=== PATIENT | female | born 1980 | race Caucasian/White ===

== ENCOUNTER 2018-12-12 05:56 | Inpatient (IN) | payer OTHER ==
[2018-12-12 06:26] LABS: ADD MAN DIFF? NO
[2018-12-12 06:29] LABS: WHITE BLOOD COUNT 9.6 10^3/ul (4.8-10.8)
[2018-12-12 06:29] LABS: BASOPHILS % 0.3 % (0.0-2.0); EOSINOPHILS # 0.5 10^3/ul (0.0-0.5); EOSINOPHILS % 5.5 % (0.0-7.0); HEMATOCRIT 20.6 % (37.0-47.0); LYMPHOCYTES # 1.7 10^3/ul (0.8-2.9); LYMPHOCYTES % 17.2 % (15.0-51.0); MEAN CORPUSCULAR HEMOGLOBIN 29.9 pg (29.0-33.0); MEAN CORPUSCULAR HGB CONC 32.5 g/dl (32.0-37.0); MEAN PLATELET VOLUME 10.9 fl (7.4-10.4); MONOCYTE # 0.7 10^3/ul (0.3-0.9); MONOCYTES % 7.6 % (0.0-11.0); NEUTROPHIL # 6.7 10^3/ul (1.6-7.5); NEUTROPHILS % 69.1 % (39.0-77.0); PLATELET COUNT 234 10^3/UL (140-415); RED BLOOD COUNT 2.24 10^6/ul (4.20-5.40); RED CELL DISTRIBUTION WIDTH 15.1 % (11.5-14.5)
[2018-12-12] MEDS ORDERED: THROMBIN 5000 UNIT VIAL (06:47)
[2018-12-12] MEDS ORDERED: LIDOCAINE 1% (MPF) 30 ML INJ (06:47)
[2018-12-12] MEDS ORDERED: GELATIN SIZE 100 SPONGE (06:47)
[2018-12-12] MEDS ORDERED: HEPARIN 1000 UNITS/ML 10 ML INJ (06:48)
[2018-12-12 06:49] LABS: ANION GAP 9 (5-13); CARBON DIOXIDE 18 mmol/L (21-31); CHLORIDE 114 mmol/L (97-110); Estimated GFR 8 mL/min (>60); GLUCOSE 88 mg/dl (70-220); HEMOGLOBIN 6.7 g/dl (12.0-16.0); HOLD TRANSMISSIONS 1; INR 0.92; PARTIAL THROMBOPLASTIN TIME 34.9 Sec (23.0-35.0); POSITIVE DIFF @See below; POTASSIUM 3.9 mmol/L (3.5-5.1); PROTIME 12.5 Sec (11.9-14.9); SODIUM 141 mmol/L (135-144)
[2018-12-12 06:52] LABS: CALCIUM 7.8 mg/dl (8.4-10.2); CREATININE 5.78 mg/dl (0.44-1.00)
[2018-12-12 06:56] LABS: BLOOD UREA NITROGEN 48 mg/dl (7-20)
[2018-12-12 08:45] LABS: ANISOCYTOSIS 1+ (0-0); BAND NEUTROPHILS #M 0.3 10^3/ul (0.0-0.6); BAND NEUTROPHILS % (M) 4 % (0-4); EOSINOPHILS % (M) 3 % (0-7); GIANT THROMBO% (M) 1 % (0-0); LYMPHOCYTES #M 1.7 10^3/ul (0.8-2.9); LYMPHOCYTES % (M) 18 % (15-51); MICROCYTOSIS 1+ (0-0); MONOCYTE #M 0.4 10^3/ul (0.3-0.9); MONOCYTES % (M) 5 % (0-11); PLATELET ESTIMATE NORMAL; POIKILOCYTOSIS 1+ (0-0); POLYCHROMASIA 3+ (0-0); SEG NEUT #M 6.7 10^3/ul (1.6-7.5); SEGMENTED NEUTROPHILS (M) % 70 % (39-77); SMUDGE%M 4 % (0-0)
[2018-12-12] MEDS: NICOTINE (21 MG/24 HR) PATCH TRANSDERM (09:12)
[2018-12-12] MEDS ORDERED: ONDANSETRON 4 MG INJ IV (12:00)
[2018-12-12] MEDS ORDERED: DOCUSATE SODIUM 100 MG CAP PO (12:00)
[2018-12-12] MEDS ORDERED: morphine 2 MG INJ IV (12:00)
[2018-12-12] MEDS ORDERED: NACL 0.9% 3 ML SYG IV (12:00)
[2018-12-12] MEDS: ASPIRIN (EC) 81 MG TAB PO (12:16)
[2018-12-12 12:30] LABS: ADD MAN DIFF? NO
[2018-12-12 12:33] LABS: ABNORMAL IP MESSAGE 1; BASOPHILS % 0.4 % (0.0-2.0); EOSINOPHILS # 0.6 10^3/ul (0.0-0.5); EOSINOPHILS % 7.5 % (0.0-7.0); HEMATOCRIT 21.7 % (37.0-47.0); LYMPHOCYTES # 1.6 10^3/ul (0.8-2.9); LYMPHOCYTES % 19.3 % (15.0-51.0); MEAN CORPUSCULAR HEMOGLOBIN 29.1 pg (29.0-33.0); MEAN CORPUSCULAR HGB CONC 31.3 g/dl (32.0-37.0); MEAN CORPUSCULAR VOLUME 92.7 fl (82.0-101.0); MEAN PLATELET VOLUME 10.7 fl (7.4-10.4); MONOCYTE # 0.5 10^3/ul (0.3-0.9); MONOCYTES % 6.3 % (0.0-11.0); NEUTROPHIL # 5.6 10^3/ul (1.6-7.5); PLATELET COUNT 225 10^3/UL (140-415); RED BLOOD COUNT 2.34 10^6/ul (4.20-5.40); RED CELL DISTRIBUTION WIDTH 15.4 % (11.5-14.5)
[2018-12-12 12:33] LABS: WHITE BLOOD COUNT 8.5 10^3/ul (4.8-10.8)
[2018-12-12] MEDS: SOD CHLORIDE 0.9% 250 ML IV* (12:35)
[2018-12-12 12:36] LABS: HEMOGLOBIN 6.8 g/dl (12.0-16.0); POSITIVE DIFF @See below
[2018-12-12 12:46] LABS: HEMOGLOBIN A1C 5.4 % (0-5.9)
[2018-12-12 12:49] LABS: ANION GAP 14 (5-13); BLOOD UREA NITROGEN 46 mg/dl (7-20); CALCIUM 7.9 mg/dl (8.4-10.2); CARBON DIOXIDE 17 mmol/L (21-31); CHLORIDE 112 mmol/L (97-110); CREATININE 5.83 mg/dl (0.44-1.00); Estimated GFR 8 mL/min (>60); GLUCOSE 81 mg/dl (70-220); MAGNESIUM 1.7 mg/dl (1.7-2.5); PHOSPHORUS 5.3 mg/dl (2.5-4.9); POTASSIUM 4.3 mmol/L (3.5-5.1); SODIUM 143 mmol/L (135-144)
[2018-12-12] MEDS: FUROSEMIDE 40 MG INJ IV (13:24)
[2018-12-12 13:58] LABS: IMMEDIATE SPIN CROSSMATCH 1 3
[2018-12-12] MEDS: ACETAMINOPHEN 650MG/20.3ML CUP PO (15:05)
[2018-12-12] MEDS: hydrALAzine 20 MG INJ IV (15:14)
[2018-12-12] MEDS: CITRIC ACID/NA CITRATE 30 ML CUP PO ×2 (16:40→21:09)
[2018-12-12] MEDS: LORAZEPAM 0.5 MG TAB PO (17:46)
[2018-12-12 18:28] LABS: IRON 104 ug/dl (35-150)
[2018-12-12 18:28] LABS: LACTATE DEHYDROGENASE 906 IU/L (313-618)
[2018-12-12 18:37] LABS: % IRON SATURATION 42 % SAT (22-52); TOTAL IRON BINDING CAPACITY 248 ug/dl (241-421)
[2018-12-12 18:41] LABS: TROPONIN-I 0.018 ng/ml (0.000-0.120)
[2018-12-12 19:37] LABS: FOLATE 12.5 ng/ml (2.8-20.0)
[2018-12-12] MEDS: EPOETIN 3000 UNITS/ML (NON ESRD/NON ONCOLOGY) SC (20:00)
[2018-12-12 20:46] LABS: ANION GAP 13 (5-13); BLOOD UREA NITROGEN 49 mg/dl (7-20); CARBON DIOXIDE 18 mmol/L (21-31); CHLORIDE 111 mmol/L (97-110); CREATININE 5.83 mg/dl (0.44-1.00); Estimated GFR 8 mL/min (>60); GLUCOSE 118 mg/dl (70-220); MAGNESIUM 1.7 mg/dl (1.7-2.5); POTASSIUM 4.5 mmol/L (3.5-5.1); SODIUM 142 mmol/L (135-144)
[2018-12-12 21:08] LABS: CREATINE KINASE 276 IU/L (23-200)
[2018-12-12] MEDS: ATORVASTATIN 20 MG TAB PO (21:10)
[2018-12-12] MEDS: FUROSEMIDE 20 MG INJ IV (21:10)
[2018-12-12] MEDS: traZODone 50 MG TAB PO (21:12)
[2018-12-12] MEDS: ISOSORBIDE MONONITRATE 20 MG TAB PO (21:19)
[2018-12-12 21:20] LABS: CK INDEX 1.2; CK-MB 3.43 ng/ml (0.0-2.4); TROPONIN-I 0.014 ng/ml (0.000-0.120)
[2018-12-12] MEDS: IPRATROPIUM (NEB) 0.5 MG/2.5 ML AMP NEB (21:44)
[2018-12-12] MEDS: ALBUTEROL 0.083% (NEB) 2.5 MG/3 ML AMP NEB (21:44)
[2018-12-12] MEDS ORDERED: MAGNESIUM SULFATE 2 GM/50 ML 50 ML (22:02)
[2018-12-12] MEDS: MAGNESIUM SULFATE 2 GM/50 ML 50 ML IVPB (22:07)
[2018-12-13] MEDS: OLANZAPINE 2.5 MG TAB PO ×3 (00:02→20:19)
[2018-12-13 01:43] LABS: TROPONIN-I 0.016 ng/ml (0.000-0.120)
[2018-12-13] MEDS: FUROSEMIDE 20 MG INJ IV ×2 (05:16→06:54)
[2018-12-13] MEDS: PANTOPRAZOLE (EC) 40 MG TAB PO ×2 (05:17→06:53)
[2018-12-13 06:06] LABS: ADD MAN DIFF? NO
[2018-12-13 06:10] LABS: BASOPHILS % 0.4 % (0.0-2.0); EOSINOPHILS # 0.6 10^3/ul (0.0-0.5); EOSINOPHILS % 6.7 % (0.0-7.0); HEMATOCRIT 25.7 % (37.0-47.0); HEMOGLOBIN 8.2 g/dl (12.0-16.0); LYMPHOCYTES % 21.4 % (15.0-51.0); MEAN CORPUSCULAR HEMOGLOBIN 29.4 pg (29.0-33.0); MEAN CORPUSCULAR HGB CONC 31.9 g/dl (32.0-37.0); MEAN CORPUSCULAR VOLUME 92.1 fl (82.0-101.0); MEAN PLATELET VOLUME 10.9 fl (7.4-10.4); MONOCYTE # 0.8 10^3/ul (0.3-0.9); MONOCYTES % 8.2 % (0.0-11.0); NEUTROPHIL # 5.8 10^3/ul (1.6-7.5); NEUTROPHILS % 62.3 % (39.0-77.0); PLATELET COUNT 213 10^3/UL (140-415); RED BLOOD COUNT 2.79 10^6/ul (4.20-5.40); RED CELL DISTRIBUTION WIDTH 15.1 % (11.5-14.5)
[2018-12-13 06:10] LABS: WHITE BLOOD COUNT 9.3 10^3/ul (4.8-10.8)
[2018-12-13 06:35] LABS: ANION GAP 11 (5-13); BLOOD UREA NITROGEN 49 mg/dl (7-20); CALCIUM 8.2 mg/dl (8.4-10.2); CARBON DIOXIDE 20 mmol/L (21-31); CHLORIDE 113 mmol/L (97-110); CREATININE 5.94 mg/dl (0.44-1.00); Estimated GFR 8 mL/min (>60); GLUCOSE 79 mg/dl (70-220); POTASSIUM 4.4 mmol/L (3.5-5.1); SODIUM 144 mmol/L (135-144)
[2018-12-13 06:36] LABS: TROPONIN-I 0.025 ng/ml (0.000-0.120)
[2018-12-13] MEDS: SEVELAMER CARBONATE 800 MG TABLET PO ×3 (07:48→17:31)
[2018-12-13] MEDS: NICOTINE (21 MG/24 HR) PATCH TRANSDERM (08:29)
[2018-12-13] MEDS: BUPROPION (XL) 150 MG TAB PO (08:30)
[2018-12-13] MEDS: SERTRALINE 50 MG TAB PO (08:30)
[2018-12-13] MEDS: ASPIRIN (EC) 81 MG TAB PO (08:31)
[2018-12-13] MEDS: CITRIC ACID/NA CITRATE 30 ML CUP PO ×3 (08:31→20:18)
[2018-12-13] MEDS: AMLODIPINE 10 MG TAB PO (08:31)
[2018-12-13] MEDS: FLUPHENAZINE 5 MG TAB PO (08:35)
[2018-12-13] MEDS: ISOSORBIDE MONONITRATE 20 MG TAB PO (08:35)
[2018-12-13] MEDS: FUROSEMIDE 40 MG INJ IV (17:32)
[2018-12-13] MEDS: ISOSORBIDE DINITRATE 20 MG TAB PO (20:19)
[2018-12-13] MEDS: ATORVASTATIN 20 MG TAB PO (20:19)
[2018-12-13] MEDS: traZODone 50 MG TAB PO (20:19)
[2018-12-14] MEDS: FUROSEMIDE 40 MG INJ IV ×2 (05:46→17:52)
[2018-12-14] MEDS: PANTOPRAZOLE (EC) 40 MG TAB PO (05:46)
[2018-12-14 08:26] LABS: ADD MAN DIFF? NO
[2018-12-14 08:38] LABS: WHITE BLOOD COUNT 9.6 10^3/ul (4.8-10.8)
[2018-12-14 08:38] LABS: BASOPHILS % 0.3 % (0.0-2.0); EOSINOPHILS # 0.6 10^3/ul (0.0-0.5); HEMATOCRIT 26.1 % (37.0-47.0); HEMOGLOBIN 8.4 g/dl (12.0-16.0); LYMPHOCYTES # 1.8 10^3/ul (0.8-2.9); MEAN CORPUSCULAR HEMOGLOBIN 29.3 pg (29.0-33.0); MEAN CORPUSCULAR HGB CONC 32.2 g/dl (32.0-37.0); MEAN CORPUSCULAR VOLUME 90.9 fl (82.0-101.0); MONOCYTE # 0.7 10^3/ul (0.3-0.9); MONOCYTES % 7.7 % (0.0-11.0); NEUTROPHIL # 6.4 10^3/ul (1.6-7.5); NEUTROPHILS % 66.4 % (39.0-77.0); PLATELET COUNT 220 10^3/UL (140-415); RED BLOOD COUNT 2.87 10^6/ul (4.20-5.40); RED CELL DISTRIBUTION WIDTH 15.1 % (11.5-14.5)
[2018-12-14] MEDS: NICOTINE (21 MG/24 HR) PATCH TRANSDERM (08:41)
[2018-12-14] MEDS: CITRIC ACID/NA CITRATE 30 ML CUP PO ×3 (08:41→21:36)
[2018-12-14] MEDS: SEVELAMER CARBONATE 800 MG TABLET PO ×3 (08:41→17:52)
[2018-12-14] MEDS: SERTRALINE 50 MG TAB PO (08:41)
[2018-12-14] MEDS: BUPROPION (XL) 150 MG TAB PO (08:42)
[2018-12-14] MEDS: OLANZAPINE 2.5 MG TAB PO ×2 (08:42→21:36)
[2018-12-14] MEDS: AMLODIPINE 10 MG TAB PO (08:42)
[2018-12-14] MEDS: ASPIRIN (EC) 81 MG TAB PO (08:42)
[2018-12-14] MEDS: FLUPHENAZINE 5 MG TAB PO (08:43)
[2018-12-14] MEDS: ISOSORBIDE DINITRATE 20 MG TAB PO ×3 (09:14→21:36)
[2018-12-14 09:21] LABS: ANION GAP 6 (5-13); BLOOD UREA NITROGEN 50 mg/dl (7-20); CALCIUM 8.4 mg/dl (8.4-10.2); CARBON DIOXIDE 23 mmol/L (21-31); CHLORIDE 111 mmol/L (97-110); CREATININE 6.18 mg/dl (0.44-1.00); Estimated GFR 8 mL/min (>60); GLUCOSE 131 mg/dl (70-220); POTASSIUM 4.5 mmol/L (3.5-5.1); SODIUM 140 mmol/L (135-144)
[2018-12-14] MEDS: EPOETIN 3000 UNITS/ML (NON ESRD/NON ONCOLOGY) SC (17:54)
[2018-12-14] MEDS: ATORVASTATIN 20 MG TAB PO (21:36)
[2018-12-14] MEDS: traZODone 50 MG TAB PO (21:36)
[2018-12-14] MEDS: morphine SULFATE/PF (2 MG/2 ML) SYG IV (23:01)
[2018-12-15] MEDS: morphine SULFATE/PF (2 MG/2 ML) SYG IV ×2 (05:27→11:35)
[2018-12-15] MEDS: PANTOPRAZOLE (EC) 40 MG TAB PO (05:28)
[2018-12-15] MEDS: FUROSEMIDE 40 MG INJ IV ×2 (05:28→18:00)
[2018-12-15 06:48] LABS: ADD MAN DIFF? NO
[2018-12-15 06:51] LABS: BASOPHILS % 0.5 % (0.0-2.0); EOSINOPHILS # 0.6 10^3/ul (0.0-0.5); EOSINOPHILS % 7.4 % (0.0-7.0); HEMATOCRIT 24.9 % (37.0-47.0); HEMOGLOBIN 8.1 g/dl (12.0-16.0); MEAN CORPUSCULAR HEMOGLOBIN 29.2 pg (29.0-33.0); MEAN CORPUSCULAR HGB CONC 32.5 g/dl (32.0-37.0); MEAN CORPUSCULAR VOLUME 89.9 fl (82.0-101.0); MEAN PLATELET VOLUME 11.1 fl (7.4-10.4); MONOCYTE # 0.7 10^3/ul (0.3-0.9); MONOCYTES % 7.7 % (0.0-11.0); NEUTROPHIL # 5.2 10^3/ul (1.6-7.5); NEUTROPHILS % 60.9 % (39.0-77.0); PLATELET COUNT 205 10^3/UL (140-415); RED BLOOD COUNT 2.77 10^6/ul (4.20-5.40); RED CELL DISTRIBUTION WIDTH 14.6 % (11.5-14.5)
[2018-12-15 06:51] LABS: WHITE BLOOD COUNT 8.5 10^3/ul (4.8-10.8)
[2018-12-15 07:21] LABS: ANION GAP 7 (5-13); BLOOD UREA NITROGEN 55 mg/dl (7-20); CALCIUM 8.2 mg/dl (8.4-10.2); CARBON DIOXIDE 25 mmol/L (21-31); CHLORIDE 107 mmol/L (97-110); Estimated GFR 8 mL/min (>60); GLUCOSE 94 mg/dl (70-220); POTASSIUM 4.2 mmol/L (3.5-5.1); SODIUM 139 mmol/L (135-144)
[2018-12-15] MEDS: CITRIC ACID/NA CITRATE 30 ML CUP PO ×3 (09:44→21:17)
[2018-12-15] MEDS: SERTRALINE 50 MG TAB PO (09:44)
[2018-12-15] MEDS: AMLODIPINE 10 MG TAB PO (09:45)
[2018-12-15] MEDS: OLANZAPINE 2.5 MG TAB PO ×2 (09:45→21:16)
[2018-12-15] MEDS: SEVELAMER CARBONATE 800 MG TABLET PO ×3 (09:45→18:00)
[2018-12-15] MEDS: ISOSORBIDE DINITRATE 20 MG TAB PO ×3 (09:45→21:17)
[2018-12-15] MEDS: ASPIRIN (EC) 81 MG TAB PO (09:45)
[2018-12-15] MEDS: FLUPHENAZINE 5 MG TAB PO (09:45)
[2018-12-15] MEDS: BUPROPION (XL) 150 MG TAB PO (09:45)
[2018-12-15] MEDS: NICOTINE (21 MG/24 HR) PATCH TRANSDERM (09:46)
[2018-12-15] MEDS: ATORVASTATIN 20 MG TAB PO (21:16)
[2018-12-15] MEDS: traZODone 50 MG TAB PO (21:16)
[2018-12-16] MEDS: LORAZEPAM 0.5 MG TAB PO
[2018-12-16] MEDS: PANTOPRAZOLE (EC) 40 MG TAB PO (06:31)
[2018-12-16] MEDS: FUROSEMIDE 40 MG INJ IV ×2 (06:32→17:59)
[2018-12-16] MEDS: SEVELAMER CARBONATE 800 MG TABLET PO ×3 (07:52→17:57)
[2018-12-16 08:36] LABS: ADD MAN DIFF? NO
[2018-12-16] MEDS: OLANZAPINE 2.5 MG TAB PO (08:52)
[2018-12-16] MEDS: CITRIC ACID/NA CITRATE 30 ML CUP PO ×3 (08:52→21:26)
[2018-12-16] MEDS: BUPROPION (XL) 150 MG TAB PO (08:52)
[2018-12-16] MEDS: ASPIRIN (EC) 81 MG TAB PO (08:53)
[2018-12-16] MEDS: AMLODIPINE 10 MG TAB PO (08:53)
[2018-12-16] MEDS: SERTRALINE 50 MG TAB PO (08:53)
[2018-12-16] MEDS: ISOSORBIDE DINITRATE 20 MG TAB PO ×3 (08:54→21:18)
[2018-12-16] MEDS: NICOTINE (21 MG/24 HR) PATCH TRANSDERM (08:55)
[2018-12-16] MEDS: FLUPHENAZINE 5 MG TAB PO (08:58)
[2018-12-16 09:05] LABS: WHITE BLOOD COUNT 8.3 10^3/ul (4.8-10.8)
[2018-12-16 09:05] LABS: BASOPHILS % 0.5 % (0.0-2.0); EOSINOPHILS # 0.7 10^3/ul (0.0-0.5); EOSINOPHILS % 8.4 % (0.0-7.0); HEMATOCRIT 24.2 % (37.0-47.0); HEMOGLOBIN 7.9 g/dl (12.0-16.0); LYMPHOCYTES # 1.7 10^3/ul (0.8-2.9); MEAN CORPUSCULAR HEMOGLOBIN 29.8 pg (29.0-33.0); MEAN CORPUSCULAR HGB CONC 32.6 g/dl (32.0-37.0); MEAN CORPUSCULAR VOLUME 91.3 fl (82.0-101.0); MEAN PLATELET VOLUME 11.3 fl (7.4-10.4); MONOCYTE # 0.7 10^3/ul (0.3-0.9); MONOCYTES % 8.2 % (0.0-11.0); NEUTROPHIL # 5.1 10^3/ul (1.6-7.5); NEUTROPHILS % 61.5 % (39.0-77.0); PLATELET COUNT 231 10^3/UL (140-415); RED BLOOD COUNT 2.65 10^6/ul (4.20-5.40); RED CELL DISTRIBUTION WIDTH 14.5 % (11.5-14.5)
[2018-12-16 09:08] LABS: ANION GAP 8 (5-13); BLOOD UREA NITROGEN 55 mg/dl (7-20); CALCIUM 8.1 mg/dl (8.4-10.2); CARBON DIOXIDE 26 mmol/L (21-31); CHLORIDE 102 mmol/L (97-110); CREATININE 6.19 mg/dl (0.44-1.00); Estimated GFR 8 mL/min (>60); GLUCOSE 89 mg/dl (70-220); POTASSIUM 4.5 mmol/L (3.5-5.1); SODIUM 136 mmol/L (135-144)
[2018-12-16] MEDS: EPOETIN 3000 UNITS/ML (NON ESRD/NON ONCOLOGY) SC (18:04)
[2018-12-16] MEDS: ALBUTEROL 0.083% (NEB) 2.5 MG/3 ML AMP NEB (20:56)
[2018-12-16] MEDS: OLANZAPINE 5 MG TAB PO (21:18)
[2018-12-16] MEDS: traZODone 50 MG TAB PO (21:18)
[2018-12-16] MEDS: ATORVASTATIN 20 MG TAB PO (21:18)
[2018-12-16] MEDS: ACETAMINOPHEN 650MG/20.3ML CUP PO (21:22)
[2018-12-16] MEDS: morphine 4 MG/ML VIAL IV (22:32)
[2018-12-17] MEDS: FUROSEMIDE 20 MG INJ IV (05:48)
[2018-12-17] MEDS: PANTOPRAZOLE (EC) 40 MG TAB PO (05:48)
[2018-12-17 06:14] LABS: ADD MAN DIFF? NO
[2018-12-17 06:20] LABS: WHITE BLOOD COUNT 5.6 10^3/ul (4.8-10.8)
[2018-12-17 06:20] LABS: BASOPHILS % 0.4 % (0.0-2.0); EOSINOPHILS # 0.4 10^3/ul (0.0-0.5); EOSINOPHILS % 7.7 % (0.0-7.0); HEMATOCRIT 23.7 % (37.0-47.0); HEMOGLOBIN 7.7 g/dl (12.0-16.0); LYMPHOCYTES # 1.5 10^3/ul (0.8-2.9); MEAN CORPUSCULAR HEMOGLOBIN 29.5 pg (29.0-33.0); MEAN CORPUSCULAR HGB CONC 32.5 g/dl (32.0-37.0); MEAN CORPUSCULAR VOLUME 90.8 fl (82.0-101.0); MEAN PLATELET VOLUME 10.9 fl (7.4-10.4); MONOCYTE # 0.6 10^3/ul (0.3-0.9); MONOCYTES % 11.4 % (0.0-11.0); NEUTROPHIL # 3.1 10^3/ul (1.6-7.5); NEUTROPHILS % 54.3 % (39.0-77.0); PLATELET COUNT 206 10^3/UL (140-415); RED BLOOD COUNT 2.61 10^6/ul (4.20-5.40); RED CELL DISTRIBUTION WIDTH 14.6 % (11.5-14.5)
[2018-12-17 06:41] LABS: ANION GAP 7 (5-13); BLOOD UREA NITROGEN 58 mg/dl (7-20); CALCIUM 8.1 mg/dl (8.4-10.2); CARBON DIOXIDE 25 mmol/L (21-31); CHLORIDE 106 mmol/L (97-110); CREATININE 6.08 mg/dl (0.44-1.00); Estimated GFR 8 mL/min (>60); GLUCOSE 96 mg/dl (70-220); POTASSIUM 4.4 mmol/L (3.5-5.1); SODIUM 138 mmol/L (135-144)
[2018-12-17] MEDS: SERTRALINE 50 MG TAB PO (08:06)
[2018-12-17] MEDS: CITRIC ACID/NA CITRATE 30 ML CUP PO ×3 (08:06→20:46)
[2018-12-17] MEDS: SEVELAMER CARBONATE 800 MG TABLET PO ×3 (08:06→17:40)
[2018-12-17] MEDS: AMLODIPINE 10 MG TAB PO (08:07)
[2018-12-17] MEDS: OLANZAPINE 5 MG TAB PO ×2 (08:07→20:48)
[2018-12-17] MEDS: ASPIRIN (EC) 81 MG TAB PO (08:07)
[2018-12-17] MEDS: ISOSORBIDE DINITRATE 20 MG TAB PO ×3 (08:07→20:47)
[2018-12-17] MEDS: BUPROPION (XL) 150 MG TAB PO (08:07)
[2018-12-17] MEDS: FLUPHENAZINE 5 MG TAB PO (08:09)
[2018-12-17] MEDS: NICOTINE (21 MG/24 HR) PATCH TRANSDERM (11:17)
[2018-12-17] MEDS: traZODone 50 MG TAB PO (20:46)
[2018-12-17] MEDS: ATORVASTATIN 20 MG TAB PO (20:47)
[2018-12-17] MEDS: LORAZEPAM 2 MG INJ IV ×2 (21:40→23:58)
[2018-12-18] MEDS: LEVETIRACETAM 500 MG (PMX) 100 ML IVPB ×4 (00:20→21:18)
[2018-12-18] MEDS: PANTOPRAZOLE (EC) 40 MG TAB PO (05:27)
[2018-12-18] MEDS: FUROSEMIDE 20 MG INJ IV (05:27)
[2018-12-18 06:34] LABS: ADD MAN DIFF? NO
[2018-12-18 06:36] LABS: BASOPHILS % 0.5 % (0.0-2.0); EOSINOPHILS # 0.7 10^3/ul (0.0-0.5); EOSINOPHILS % 9.3 % (0.0-7.0); HEMOGLOBIN 8.1 g/dl (12.0-16.0); LYMPHOCYTES # 1.5 10^3/ul (0.8-2.9); LYMPHOCYTES % 18.4 % (15.0-51.0); MEAN CORPUSCULAR HEMOGLOBIN 29.8 pg (29.0-33.0); MEAN CORPUSCULAR HGB CONC 32.4 g/dl (32.0-37.0); MEAN CORPUSCULAR VOLUME 91.9 fl (82.0-101.0); MEAN PLATELET VOLUME 10.5 fl (7.4-10.4); MONOCYTE # 0.7 10^3/ul (0.3-0.9); MONOCYTES % 8.1 % (0.0-11.0); NEUTROPHILS % 63.2 % (39.0-77.0); PLATELET COUNT 220 10^3/UL (140-415); RED BLOOD COUNT 2.72 10^6/ul (4.20-5.40); RED CELL DISTRIBUTION WIDTH 14.7 % (11.5-14.5)
[2018-12-18 07:08] LABS: ANION GAP 9 (5-13); BLOOD UREA NITROGEN 59 mg/dl (7-20); CALCIUM 8.3 mg/dl (8.4-10.2); CARBON DIOXIDE 26 mmol/L (21-31); CHLORIDE 101 mmol/L (97-110); CREATININE 6.66 mg/dl (0.44-1.00); Estimated GFR 7 mL/min (>60); GLUCOSE 85 mg/dl (70-220); POTASSIUM 4.4 mmol/L (3.5-5.1); SODIUM 136 mmol/L (135-144)
[2018-12-18] MEDS: CITRIC ACID/NA CITRATE 30 ML CUP PO ×3 (08:39→21:18)
[2018-12-18] MEDS: SEVELAMER CARBONATE 800 MG TABLET PO ×2 (08:40→11:50)
[2018-12-18] MEDS: NICOTINE (21 MG/24 HR) PATCH TRANSDERM (08:40)
[2018-12-18] MEDS: BUPROPION (XL) 150 MG TAB PO (08:41)
[2018-12-18] MEDS: OLANZAPINE 5 MG TAB PO ×2 (08:41→21:17)
[2018-12-18] MEDS: SERTRALINE 50 MG TAB PO (08:43)
[2018-12-18] MEDS: AMLODIPINE 10 MG TAB PO (08:44)
[2018-12-18] MEDS: ISOSORBIDE DINITRATE 20 MG TAB PO ×3 (08:45→21:18)
[2018-12-18] MEDS: ASPIRIN (EC) 81 MG TAB PO (08:45)
[2018-12-18] MEDS: FLUPHENAZINE 5 MG TAB PO (08:46)
[2018-12-18] MEDS ORDERED: HEPARIN 1000 UNITS/ML 10 ML INJ (18:20)
[2018-12-18] MEDS ORDERED: LIDOCAINE 1% (MPF) 30 ML INJ (18:23)
[2018-12-18] MEDS: ATORVASTATIN 20 MG TAB PO (21:17)
[2018-12-18] MEDS: traZODone 50 MG TAB PO (21:18)
[2018-12-19] MEDS: FUROSEMIDE 20 MG INJ IV (06:00)
[2018-12-19 06:10] LABS: ADD MAN DIFF? NO
[2018-12-19] MEDS: PANTOPRAZOLE (EC) 40 MG TAB PO (06:14)
[2018-12-19 06:37] LABS: WHITE BLOOD COUNT 5.9 10^3/ul (4.8-10.8)
[2018-12-19 06:37] LABS: BASOPHIL # 0.1 10^3/ul (0.0-0.1); BASOPHILS % 0.8 % (0.0-2.0); EOSINOPHILS # 0.7 10^3/ul (0.0-0.5); HEMATOCRIT 24.3 % (37.0-47.0); HEMOGLOBIN 7.8 g/dl (12.0-16.0); LYMPHOCYTES # 1.6 10^3/ul (0.8-2.9); LYMPHOCYTES % 27.1 % (15.0-51.0); MEAN CORPUSCULAR HEMOGLOBIN 29.5 pg (29.0-33.0); MEAN CORPUSCULAR HGB CONC 32.1 g/dl (32.0-37.0); MEAN PLATELET VOLUME 11.1 fl (7.4-10.4); MONOCYTE # 0.6 10^3/ul (0.3-0.9); MONOCYTES % 9.6 % (0.0-11.0); NEUTROPHILS % 50.2 % (39.0-77.0); PLATELET COUNT 231 10^3/UL (140-415); RED BLOOD COUNT 2.64 10^6/ul (4.20-5.40); RED CELL DISTRIBUTION WIDTH 14.6 % (11.5-14.5)
[2018-12-19 06:47] LABS: ANION GAP 9 (5-13); BLOOD UREA NITROGEN 62 mg/dl (7-20); CALCIUM 8.4 mg/dl (8.4-10.2); CARBON DIOXIDE 25 mmol/L (21-31); CHLORIDE 106 mmol/L (97-110); CREATININE 7.05 mg/dl (0.44-1.00); Estimated GFR 6 mL/min (>60); GLUCOSE 104 mg/dl (70-220); POTASSIUM 4.4 mmol/L (3.5-5.1); SODIUM 140 mmol/L (135-144)
[2018-12-19] MEDS: SEVELAMER CARBONATE 800 MG TABLET PO ×4 (07:55→18:04)
[2018-12-19] MEDS: CITRIC ACID/NA CITRATE 30 ML CUP PO ×3 (08:45→22:13)
[2018-12-19] MEDS: ISOSORBIDE DINITRATE 20 MG TAB PO ×3 (08:46→22:12)
[2018-12-19] MEDS: AMLODIPINE 10 MG TAB PO (08:46)
[2018-12-19] MEDS: ASPIRIN (EC) 81 MG TAB PO (08:47)
[2018-12-19] MEDS: OLANZAPINE 5 MG TAB PO ×2 (08:47→22:11)
[2018-12-19] MEDS: SERTRALINE 50 MG TAB PO (08:47)
[2018-12-19] MEDS: FLUPHENAZINE 5 MG TAB PO (09:00)
[2018-12-19] MEDS: LEVETIRACETAM 500 MG TAB PO ×2 (10:26→22:11)
[2018-12-19] MEDS: FUROSEMIDE 20 MG TAB PO (10:28)
[2018-12-19] MEDS: NICOTINE (21 MG/24 HR) PATCH TRANSDERM (10:29)
[2018-12-19] MEDS: EPOETIN 10000 UNITS/1 ML INJ (ESRD) SC (18:06)
[2018-12-19] MEDS: ATORVASTATIN 20 MG TAB PO (22:11)
[2018-12-19] MEDS: traZODone 50 MG TAB PO (22:12)
[2018-12-20] MEDS: IPRATROPIUM (NEB) 0.5 MG/2.5 ML AMP NEB (03:23)
[2018-12-20] MEDS: ALBUTEROL 0.083% (NEB) 2.5 MG/3 ML AMP NEB (03:24)
[2018-12-20] MEDS: ISOSORBIDE DINITRATE 20 MG TAB PO ×3 (08:54→20:54)
[2018-12-20] MEDS: AMLODIPINE 10 MG TAB PO (08:55)
[2018-12-20] MEDS: ASPIRIN (EC) 81 MG TAB PO (09:23)
[2018-12-20] MEDS: CITRIC ACID/NA CITRATE 30 ML CUP PO ×3 (09:23→20:53)
[2018-12-20] MEDS: PANTOPRAZOLE (EC) 40 MG TAB PO (09:23)
[2018-12-20] MEDS: FUROSEMIDE 20 MG TAB PO ×2 (09:23→17:49)
[2018-12-20] MEDS: LEVETIRACETAM 500 MG TAB PO ×2 (09:23→20:54)
[2018-12-20] MEDS: NICOTINE (21 MG/24 HR) PATCH TRANSDERM (09:25)
[2018-12-20] MEDS: SEVELAMER CARBONATE 800 MG TABLET PO ×3 (09:39→17:48)
[2018-12-20] MEDS: SERTRALINE 50 MG TAB PO (09:40)
[2018-12-20] MEDS: FLUPHENAZINE 5 MG TAB PO (09:41)
[2018-12-20] MEDS: OLANZAPINE 5 MG TAB PO (09:41)
[2018-12-20 11:03] LABS: URIC ACID 6.4 mg/dl (3.1-7.9)
[2018-12-20 11:11] LABS: B-TYPE NATRIURETIC PEPTIDE 10400 PG/ML (0-125)
[2018-12-20] MEDS: hydrALAzine 20 MG INJ IV (17:49)
[2018-12-20] MEDS: ATORVASTATIN 20 MG TAB PO (20:53)
[2018-12-20] MEDS: traZODone 50 MG TAB PO (20:54)
[2018-12-21] MEDS: ALBUTEROL 0.083% (NEB) 2.5 MG/3 ML AMP NEB (02:28)
[2018-12-21] MEDS: FUROSEMIDE 20 MG TAB PO ×2 (05:54→18:04)
[2018-12-21] MEDS: PANTOPRAZOLE (EC) 40 MG TAB PO (05:54)
[2018-12-21 06:00] LABS: ADD MAN DIFF? NO
[2018-12-21 06:10] LABS: WHITE BLOOD COUNT 7.4 10^3/ul (4.8-10.8)
[2018-12-21 06:10] LABS: BASOPHIL # 0.1 10^3/ul (0.0-0.1); BASOPHILS % 0.7 % (0.0-2.0); EOSINOPHILS # 0.8 10^3/ul (0.0-0.5); EOSINOPHILS % 11.4 % (0.0-7.0); HEMATOCRIT 25.8 % (37.0-47.0); HEMOGLOBIN 8.2 g/dl (12.0-16.0); LYMPHOCYTES # 1.7 10^3/ul (0.8-2.9); LYMPHOCYTES % 22.6 % (15.0-51.0); MEAN CORPUSCULAR HEMOGLOBIN 29.4 pg (29.0-33.0); MEAN CORPUSCULAR HGB CONC 31.8 g/dl (32.0-37.0); MEAN CORPUSCULAR VOLUME 92.5 fl (82.0-101.0); MONOCYTE # 0.6 10^3/ul (0.3-0.9); MONOCYTES % 7.9 % (0.0-11.0); NEUTROPHIL # 4.2 10^3/ul (1.6-7.5); NEUTROPHILS % 56.7 % (39.0-77.0); PLATELET COUNT 228 10^3/UL (140-415); RED BLOOD COUNT 2.79 10^6/ul (4.20-5.40); RED CELL DISTRIBUTION WIDTH 14.5 % (11.5-14.5)
[2018-12-21 06:38] LABS: ANION GAP 10 (5-13); BLOOD UREA NITROGEN 60 mg/dl (7-20); CALCIUM 8.7 mg/dl (8.4-10.2); CARBON DIOXIDE 25 mmol/L (21-31); CHLORIDE 105 mmol/L (97-110); CREATININE 6.92 mg/dl (0.44-1.00); Estimated GFR 7 mL/min (>60); GLUCOSE 86 mg/dl (70-220); POTASSIUM 4.5 mmol/L (3.5-5.1); SODIUM 140 mmol/L (135-144)
[2018-12-21] MEDS: hydrALAzine 20 MG INJ IV ×2 (07:53→23:17)
[2018-12-21] MEDS: SEVELAMER CARBONATE 800 MG TABLET PO ×3 (08:00→18:00)
[2018-12-21] MEDS: LEVETIRACETAM 500 MG TAB PO ×2 (09:00→20:40)
[2018-12-21] MEDS: AMLODIPINE 10 MG TAB PO (09:00)
[2018-12-21] MEDS: SERTRALINE 50 MG TAB PO (09:00)
[2018-12-21] MEDS: CITRIC ACID/NA CITRATE 30 ML CUP PO ×3 (09:00→20:40)
[2018-12-21] MEDS: ISOSORBIDE DINITRATE 20 MG TAB PO ×3 (09:00→20:41)
[2018-12-21] MEDS: ASPIRIN (EC) 81 MG TAB PO (09:00)
[2018-12-21] MEDS: OLANZAPINE 5 MG TAB PO (09:00)
[2018-12-21] MEDS: NICOTINE (21 MG/24 HR) PATCH TRANSDERM (09:51)
[2018-12-21] MEDS ORDERED: GELATIN SIZE 100 SPONGE (10:54)
[2018-12-21] MEDS ORDERED: LIDOCAINE 1% (MPF) 30 ML INJ (10:54)
[2018-12-21] MEDS ORDERED: HEPARIN 1000 UNITS/ML 10 ML INJ (10:55)
[2018-12-21] MEDS ORDERED: THROMBIN 5000 UNIT VIAL ×2 (10:55→13:32)
[2018-12-21] MEDS ORDERED: ETOMIDATE 20 MG INJ (11:02)
[2018-12-21] MEDS ORDERED: ROCURONIUM 50 MG INJ (11:02)
[2018-12-21] MEDS ORDERED: FENTAnyl 50 MCG/ML VIAL ×2 (11:03→12:39)
[2018-12-21] MEDS ORDERED: MIDAZOLAM 1 MG/ML 2 ML INJ ×3 (11:03→12:39)
[2018-12-21] MEDS ORDERED: LIDOCAINE 1% (MDV) 20 ML INJ (11:03)
[2018-12-21] MEDS ORDERED: ROPIVACAINE 0.5 % 30 ML VIAL (11:09)
[2018-12-21] MEDS: HEPARIN 1000 UNITS/ML 10 ML INJ IRR (11:15)
[2018-12-21] MEDS ORDERED: LIDOCAINE 2% JELLY 5 ML (11:17)
[2018-12-21] MEDS: LIDOCAINE 1% (MDV) 20 ML INJ INJ (11:30)
[2018-12-21] MEDS ORDERED: KETAMINE (50 MG/ML) 10 ML VIAL (11:51)
[2018-12-21] MEDS ORDERED: DIPHENHYDRAMINE 50 MG INJ (12:36)
[2018-12-21] MEDS: GELATIN SIZE 100 SPONGE TOP (13:03)
[2018-12-21] MEDS: THROMBIN 5000 UNIT VIAL TOP ×2 (13:03→13:34)
[2018-12-21] MEDS ORDERED: hydrALAzine 20 MG INJ (13:53)
[2018-12-21] MEDS ORDERED: hydrALAzine 20 MG INJ IV (14:30)
[2018-12-21] MEDS ORDERED: FENTAnyl 50 MCG/ML VIAL IV (14:30)
[2018-12-21] MEDS: DESMOPRESSIN 20 MCG in NS 50 ML IV (14:37)
[2018-12-21] MEDS: EPOETIN 10000 UNITS/1 ML INJ (ESRD) SC (18:09)
[2018-12-21] MEDS: ATORVASTATIN 20 MG TAB PO (20:41)
[2018-12-21] MEDS: traZODone 50 MG TAB PO (20:41)
[2018-12-21] MEDS: morphine 4 MG/ML VIAL IV (21:20)
[2018-12-22] MEDS: LORAZEPAM 0.5 MG TAB PO (03:09)
[2018-12-22] MEDS: hydrALAzine 20 MG INJ IV (03:10)
[2018-12-22] MEDS: morphine 4 MG/ML VIAL IV ×2 (03:32→09:16)
[2018-12-22 05:24] LABS: ADD MAN DIFF? NO
[2018-12-22 05:26] LABS: BASOPHILS % 0.4 % (0.0-2.0); EOSINOPHILS # 0.8 10^3/ul (0.0-0.5); EOSINOPHILS % 8.5 % (0.0-7.0); HEMATOCRIT 25.5 % (37.0-47.0); LYMPHOCYTES # 1.5 10^3/ul (0.8-2.9); LYMPHOCYTES % 16.2 % (15.0-51.0); MEAN CORPUSCULAR HEMOGLOBIN 29.1 pg (29.0-33.0); MEAN CORPUSCULAR HGB CONC 31.4 g/dl (32.0-37.0); MEAN CORPUSCULAR VOLUME 92.7 fl (82.0-101.0); MEAN PLATELET VOLUME 10.6 fl (7.4-10.4); MONOCYTE # 0.7 10^3/ul (0.3-0.9); MONOCYTES % 7.8 % (0.0-11.0); NEUTROPHIL # 5.9 10^3/ul (1.6-7.5); NEUTROPHILS % 66.4 % (39.0-77.0); PLATELET COUNT 217 10^3/UL (140-415); RED BLOOD COUNT 2.75 10^6/ul (4.20-5.40); RED CELL DISTRIBUTION WIDTH 14.6 % (11.5-14.5)
[2018-12-22] MEDS: PANTOPRAZOLE (EC) 40 MG TAB PO (05:47)
[2018-12-22] MEDS: FUROSEMIDE 20 MG TAB PO ×2 (05:48→17:27)
[2018-12-22 06:16] LABS: BLOOD UREA NITROGEN 55 mg/dl (7-20); CARBON DIOXIDE 24 mmol/L (21-31); Estimated GFR 7 mL/min (>60); GLUCOSE 91 mg/dl (70-220); POTASSIUM 4.7 mmol/L (3.5-5.1); SODIUM 138 mmol/L (135-144)
[2018-12-22 06:17] LABS: ANION GAP 12 (5-13); CHLORIDE 102 mmol/L (97-110)
[2018-12-22] MEDS: CITRIC ACID/NA CITRATE 30 ML CUP PO ×2 (08:22→12:38)
[2018-12-22] MEDS: SEVELAMER CARBONATE 800 MG TABLET PO ×3 (08:22→17:22)
[2018-12-22] MEDS: ASPIRIN (EC) 81 MG TAB PO (08:22)
[2018-12-22] MEDS: NICOTINE (21 MG/24 HR) PATCH TRANSDERM (08:22)
[2018-12-22] MEDS: LEVETIRACETAM 500 MG TAB PO (08:23)
[2018-12-22] MEDS: OLANZAPINE 5 MG TAB PO (08:23)
[2018-12-22] MEDS: SERTRALINE 50 MG TAB PO (08:23)
[2018-12-22] MEDS: ISOSORBIDE DINITRATE 20 MG TAB PO ×2 (08:24→12:38)
[2018-12-22] MEDS: AMLODIPINE 10 MG TAB PO (08:24)
[2018-12-22] MEDS: HYDROCODONE/APAP (5/325) TAB PO (09:54)
== END 2018-12-22 21:10 | disposition home or self-care (01) | DRG 264 ==
LOC: SDS 05:56 → TEL 12-13 01:47 → 2NE 12-20 02:15 → SDS 05:56 → 2NE 12-20 02:27 → 5EC 12-21 11:10 → ICU 10:30 → SDS 10:45 → REC 10:45 → ICU 10:55
PROVIDERS: Student in an Organized Health Care Education/Training Program
PROC: 03180ZD Bypass Left Brachial Artery to Upper Arm Vein, Open Approach (ICD-10-PCS; principal; 2018-12-21 11:00)
PROC: 30233N1 Transfusion of Nonautologous Red Blood Cells into Peripheral Vein, Percutaneous Approach (ICD-10-PCS; 2018-12-21 11:17)
DX: I13.2 Hypertensive heart and chronic kidney disease with heart failure and with stage 5 chronic kidney disease, or end stage renal disease (principal); N18.6 End stage renal disease; E87.2 Acidosis; F20.0 Paranoid schizophrenia; I69.959 Hemiplegia and hemiparesis following unspecified cerebrovascular disease affecting unspecified side; I50.9 Heart failure, unspecified; D64.9 Anemia, unspecified; J44.9 Chronic obstructive pulmonary disease, unspecified; E11.22 Type 2 diabetes mellitus with diabetic chronic kidney disease; Z87.820 Personal history of traumatic brain injury; F17.210 Nicotine dependence, cigarettes, uncomplicated; D63.1 Anemia in chronic kidney disease; R56.9 Unspecified convulsions
CPT/HCPCS: 36430; 70551; 71045; 80048; 82550; 82553; 82607; 82728; 82746; 82962; 83036; 83540; 83615; 83735; 83880; 84100; 84484; 84560; 84703; 85025; 85610; 85730; 86850; 86900; 86901; 86920; 93005; 93306; 94640; 94664; 95819